=== PATIENT | male | born 1985 | race African-American/Black ===

== ENCOUNTER 2023-08-29 19:27 | Emergency (ER) | payer OTHER ==
[2023-08-29 19:36] VITALS: BP 120/75; PULSE 79; RESP 20; TEMP 98.7; BMI 25.0
[2023-08-29] MEDS ORDERED: ACETAMINOPHEN 500 MG TABLET (FP) ONE (20:57)
[2023-08-29] MEDS ORDERED: LIDOCAINE 4% PATCH TP ONE (20:57)
[2023-08-29] MEDS ORDERED: KETOROLAC TROMETHAMINE 30 MG/1 ML VIAL ONE (20:57)
[2023-08-29] MEDS: LIDOCAINE 4% PATCH TP ONE (21:04)
[2023-08-29] MEDS: KETOROLAC TROMETHAMINE 30 MG/1 ML VIAL IM ONE (21:04)
[2023-08-29] MEDS: ACETAMINOPHEN 500 MG TABLET (FP) PO ONE (21:04)
[2023-08-29] MEDS ORDERED: LIDOCAINE PATCH REMOVAL MC SCH (22:00)
== END 2023-08-29 22:18 | disposition home or self-care (01) ==
LOC: JERFT 19:27
PROC: 3E0233Z Introduction of Anti-inflammatory into Muscle, Percutaneous Approach (ICD-10-PCS; principal; 2023-08-29)
DX: M54.50 Low back pain, unspecified (principal)
CPT/HCPCS: 72100-TC-FY; 99284-25